=== PATIENT | male | born 1960 | race Caucasian/White ===

== ENCOUNTER 2016-06-21 02:11 | Emergency (ER) | payer BC ==
[~2016-06-21] VITALS: Ht 180.3 cm; Wt 100.0 kg
[~2016-06-21 02:11] MED LIST: ALEVE 220MG220 MG PO; LISINOPRIL10 MG PO; LISINOPRIL40 MG PO; SLOW FE45 MG PO; THERAGRAN1 TA1 PO; TYLENOL 325MG325 MG PO
[2016-06-21 02:13] VITALS: BP 181/100; TEMP 97.7
[2016-06-21] MEDS ORDERED: ASPIRIN 81M81 MG/TA2 PO (02:17)
[2016-06-21] MEDS ORDERED: ALEVE 220MG220 MG PO (02:17)
[2016-06-21 02:54] LABS: BASO # 0.1 (0.0-0.2); BASO % 1.4 % (0.0-2.0); EOS # 0.3 (0.0-0.7); EOS % 4.4 % (0-4.0); GRAN # 3.4 (1.4-6.5); GRAN % 54.3 % (42.2-75.2); HEMATOCRIT 44.3 % (42.0-52.0); HEMOGLOBIN 15.3 g/dl (13.5-18.0); LYMPH % 31.4 % (20.0-51.0); MEAN CELL VOLUME 90 fl (80.0-100.0); MEAN CORPUSCULAR HEMOGLOBIN 31 pg (27.0-31.0); MEAN CORPUSCULAR HGB CONC 35 g/dl (33.0-37.0); MEAN PLATELET VOLUME 9.3 fl (7.4-10.4); MONO # 0.5 (0.1-0.6); MONO % 8.2 % (1.7-9.3); PLATELET COUNT 296 K/mm3 (130-400); RED BLOOD COUNT 4.92 M/mm3 (4.20-5.60); REDCELL DISTRIBUTION WIDTH-CV 13.2 % (11.5-14.5); WHITE BLOOD COUNT 6.3 K/mm3 (4.8-10.8)
[2016-06-21 02:56] LABS: PH 5 (5-8); SQUAMOUS EPITHELIAL None Seen /hpf; URINE APPEARANCE Clear; URINE BACTERIA None Seen /hpf; URINE BILIRUBIN Negative (NEGATIVE); URINE BLOOD 2+ (NEGATIVE); URINE COLOR Yellow; URINE GLUCOSE Negative (NEGATIVE); URINE KETONE Negative (NEGATIVE); URINE UROBILINOGEN Negative (NEGATIVE); URINE WBC 0-2 /hpf
[2016-06-21 03:02] LABS: ADJUSTED CALCIUM 9.2 mg/dL (8.4-10.2); BILIRUBIN,TOTAL 0.9 mg/dL (0.0-1.0); CALCIUM 9.2 mg/dL (8.4-10.2); CREATININE, serum 1.32 mg/dL (0.66-1.25); POTASSIUM 3.9 mmol/L (3.4-5.0); TOTAL PROTEIN 6.7 gm/dL (6.4-8.2)
[2016-06-21] MEDS ORDERED: PERCOCET 325 MG1 TA2 PO (04:59)
[2016-06-21 05:43] VITALS: PULSE 72
== END 2016-06-21 05:43 | disposition home or self-care (01) ==
LOC: COL.ER 02:11
PROVIDERS: Emergency Medicine
DX: N20.2 Calculus of kidney with calculus of ureter (principal); I10 Essential (primary) hypertension; Z87.442 Personal history of urinary calculi
CPT/HCPCS: J1170; J1885; J2405; J3010; J7030

== ENCOUNTER 2016-07-03 10:12 | Emergency (ER) | payer BC ==
[~2016-07-03] VITALS: Ht 180.3 cm; Wt 100.0 kg
[~2016-07-03 10:12] MED LIST changes: +ASPIRIN 81M81 MG/TA2 PO; +PERCOCET 325 MG1 TA2 PO
[2016-07-03 10:14] VITALS: BP 159/92; TEMP 97.7
[2016-07-03] MEDS ORDERED: ZESTRIL 20MG TA20 MG PO (10:18)
[2016-07-03 11:08] LABS: ADJUSTED CALCIUM 9.5 mg/dL (8.4-10.2); ALBUMIN 4.4 gm/dL (3.5-5.0); BILIRUBIN,TOTAL 1.1 mg/dL (0.0-1.0); CALCIUM 9.8 mg/dL (8.4-10.2); CREATININE, serum 1.57 mg/dL (0.66-1.25); TOTAL PROTEIN 7.6 gm/dL (6.4-8.2)
[2016-07-03 11:09] LABS: BASO # 0.1 (0.0-0.2); EOS # 0.2 (0.0-0.7); EOS % 2.5 % (0-4.0); HEMOGLOBIN 16.2 g/dl (13.5-18.0); LYMPH # 2.1 (1.2-3.4); LYMPH % 23.1 % (20.0-51.0); MEAN CELL VOLUME 90 fl (80.0-100.0); MEAN CORPUSCULAR HEMOGLOBIN 30 pg (27.0-31.0); MEAN CORPUSCULAR HGB CONC 34 g/dl (33.0-37.0); MEAN PLATELET VOLUME 9.6 fl (7.4-10.4); MONO # 0.7 (0.1-0.6); MONO % 7.1 % (1.7-9.3); PLATELET COUNT 328 K/mm3 (130-400); RED BLOOD COUNT 5.33 M/mm3 (4.20-5.60); REDCELL DISTRIBUTION WIDTH-CV 13.2 % (11.5-14.5); WHITE BLOOD COUNT 9.1 K/mm3 (4.8-10.8)
[2016-07-03 11:16] LABS: PH 5 (5-8); URINE APPEARANCE Clear; URINE BACTERIA None Seen /hpf; URINE BILIRUBIN Negative (NEGATIVE); URINE BLOOD 2+ (NEGATIVE); URINE COLOR Yellow; URINE GLUCOSE Negative (NEGATIVE); URINE KETONE Negative (NEGATIVE); URINE UROBILINOGEN Negative (NEGATIVE); URINE WBC 0-2 /hpf
[2016-07-03 11:36] LABS: SQUAMOUS EPITHELIAL 0-2 /hpf
[2016-07-03] MEDS ORDERED: ZOFRAN ODT4 MG PO (13:22)
[2016-07-03] MEDS ORDERED: FLOMAX 0.40.4 MG/CAP PO (13:22)
[2016-07-03] MEDS ORDERED: PERCOCET 325 MG1 TA2 PO (13:22)
[2016-07-03 13:39] VITALS: PULSE 85
== END 2016-07-03 13:40 | disposition home or self-care (01) ==
LOC: COL.ER 10:12
PROVIDERS: Emergency Medicine
DX: N20.2 Calculus of kidney with calculus of ureter (principal); Z87.442 Personal history of urinary calculi
CPT/HCPCS: J2405; J3010; J7030

== ENCOUNTER 2016-07-04 00:01 | Emergency (ER) | payer BC ==
[~2016-07-04] VITALS: Ht 180.3 cm; Wt 100.0 kg
[~2016-07-04 00:01] MED LIST changes: +FLOMAX 0.40.4 MG/CAP PO; +ZESTRIL 20MG TA20 MG PO; +ZOFRAN ODT4 MG PO
[2016-07-04 00:05] VITALS: TEMP 98.4
[2016-07-04 01:23] LABS: BASO # 0.1 (0.0-0.2); BASO % 0.7 % (0.0-2.0); EOS # 0.2 (0.0-0.7); GRAN # 7.8 (1.4-6.5); HEMATOCRIT 44.2 % (42.0-52.0); HEMOGLOBIN 14.8 g/dl (13.5-18.0); LYMPH # 1.6 (1.2-3.4); LYMPH % 15.2 % (20.0-51.0); MEAN CELL VOLUME 91 fl (80.0-100.0); MEAN CORPUSCULAR HEMOGLOBIN 31 pg (27.0-31.0); MEAN CORPUSCULAR HGB CONC 34 g/dl (33.0-37.0); MEAN PLATELET VOLUME 8.9 fl (7.4-10.4); MONO # 0.9 (0.1-0.6); MONO % 8.7 % (1.7-9.3); PLATELET COUNT 276 K/mm3 (130-400); RED BLOOD COUNT 4.85 M/mm3 (4.20-5.60); REDCELL DISTRIBUTION WIDTH-CV 13.4 % (11.5-14.5); WHITE BLOOD COUNT 10.7 K/mm3 (4.8-10.8)
[2016-07-04 01:34] LABS: CALCIUM 9.1 mg/dL (8.4-10.2); CREATININE, serum 1.59 mg/dL (0.66-1.25); POTASSIUM 4.5 mmol/L (3.4-5.0)
[2016-07-04 02:22] LABS: PH 5 (5-8); SQUAMOUS EPITHELIAL 0-2 /hpf; URINE APPEARANCE Clear; URINE BACTERIA None Seen /hpf; URINE BILIRUBIN Negative (NEGATIVE); URINE BLOOD 2+ (NEGATIVE); URINE COLOR Yellow; URINE GLUCOSE Negative (NEGATIVE); URINE KETONE Negative (NEGATIVE); URINE RBC 20-50 /hpf; URINE UROBILINOGEN Negative (NEGATIVE); URINE WBC 0-2 /hpf
[2016-07-04 02:27] VITALS: BP 145/86; PULSE 76
== END 2016-07-04 02:45 | disposition home or self-care (01) ==
LOC: COL.ER 00:01
PROVIDERS: Physician Assistant
DX: N13.2 Hydronephrosis with renal and ureteral calculous obstruction (principal); Z87.442 Personal history of urinary calculi; I10 Essential (primary) hypertension
CPT/HCPCS: J1170; J1885; J3010; J7030

== ENCOUNTER 2016-07-06 08:03 | Day surgery (SDC) | payer BC ==
[~2016-07-06] VITALS: Ht 180.3 cm; Wt 102.1 kg
[2016-07-06 09:26] VITALS: BP 146/82; PULSE 84; TEMP 98.4
[2016-07-06 11:15] VITALS: BP 151/82; PULSE 77; TEMP 98.1
[2016-07-06 11:40] VITALS: BP 144/85; PULSE 85
[2016-07-06 12:38] VITALS: BP 145/94; PULSE 80; TEMP 97.5
== END 2016-07-06 12:00 | disposition home or self-care (01) ==
LOC: SDCO 08:03
DX: N13.2 Hydronephrosis with renal and ureteral calculous obstruction (principal); I10 Essential (primary) hypertension; Z96.659 Presence of unspecified artificial knee joint; Z80.9 Family history of malignant neoplasm, unspecified; Z80.8 Family history of malignant neoplasm of other organs or systems; Z80.0 Family history of malignant neoplasm of digestive organs
CPT/HCPCS: C1769; C2617; J0690; J1100; J1885; J2704; J3010; J7120; Q9967

== ENCOUNTER → 2019-06-28 | Outpatient (CLI) | payer BC | LOC: COL.RAD 07:50 | DX: N18.3 Chronic kidney disease, stage 3 (moderate) (principal) ==